=== PATIENT | male | born 1940 | race Caucasian/White ===

== ENCOUNTER → 2016-10-20 | Outpatient (CLI) | payer OTHER | LOC: BHCLAF 13:30 | PROVIDERS: ATTEND Internal Medicine Cardiovascular Disease | DX: I25.10 Atherosclerotic heart disease of native coronary artery without angina pectoris (principal); Z95.5 Presence of coronary angioplasty implant and graft; Z95.1 Presence of aortocoronary bypass graft; I10 Essential (primary) hypertension; E78.5 Hyperlipidemia, unspecified; G45.9 Transient cerebral ischemic attack, unspecified | CPT/HCPCS: 93005-PO ==

== ENCOUNTER → 2016-11-13 | Outpatient (CLI) | payer OTHER | LOC: BHFA 08:30 | PROVIDERS: ATTEND Internal Medicine Cardiovascular Disease | DX: I25.10 Atherosclerotic heart disease of native coronary artery without angina pectoris (principal) | CPT/HCPCS: 78452; 93017; A9500; J2785 ==

== ENCOUNTER 2016-11-26 07:37 | Day surgery (SDC) | payer OTHER ==
[2016-11-26] MEDS ORDERED: NS 1,000 ML IV ONE (07:42)
[2016-11-26] MEDS ORDERED: diphenhydrAMINE 25 MG CAP PO ONE ×2 (07:42→07:58)
[2016-11-26] MEDS ORDERED: FAMOTIDINE 20 MG TAB PO ONE (07:42)
[2016-11-26] MEDS ORDERED: ASPIRIN EC 325 MG TAB PO ONE ×2 (07:42→07:58)
[2016-11-26] MEDS ORDERED: DIAZEPAM 5 MG TAB PO ONE (07:42)
[2016-11-26] MEDS ORDERED: FAMOTIDINE 20 MG TAB ONE (07:58)
[2016-11-26] MEDS ORDERED: DIAZEPAM 5 MG TAB ONE (07:58)
--- NOTE | 2016-11-26 08:21 | CPEKG ---
Heart Rate: 48 RR Interval: 1250 P-R Interval: 160 QRSD Interval: 148 QT Interval: 476 QTC Interval: 426 P [place]: 65 QRS [place]: -82 T Wave [place]: 103 EKG Severity - ABNORMAL ECG - EKG Impression: SINUS BRADYCARDIA EKG Impression: ATRIAL PREMATURE COMPLEX EKG Impression: RBBB AND LAFB Electronically Signed By: Tony Price 26-Nov-2016 14:20:41
[2016-11-26 08:29] LABS: % IMMATURE GRANULYOCYTES 0.4 % (0.0-1.1); ABSOLUTE IMMATURE GRANULOCYTES 0.03 10^3/uL (0.00-0.10); ADD DIFF? NO; ADD MORPH? NO; ADD SCAN? NO; ATYPICAL LYMPHOCYTE FLAG 10 (0-99); FRAGMENT RBC FLAG 0 (0-99); HEMATOCRIT 48.5 % (40.0-51.0); HEMOGLOBIN 16.6 g/dL (13.7-17.5); LEFT SHIFT FLG 0 (0-99); LIPEMIA HEMOLYSIS FLAG 90 (0-99); MEAN CELL HEMOGLOBIN 32.1 pg (27.9-34.1); MEAN CELL HEMOGLOBIN CONCENTR. 34.2 g/dL (32.4-36.7); MEAN CELL VOLUME 93.8 fL (81.5-99.8); MEAN PLATELET VOLUME 10.4 fL (8.7-11.7); PLATELET CLUMPS FLAG 20 (0-99); PLATELET COUNT 170 10^3/uL (150-400); RED BLOOD CELL COUNT 5.17 10^6/uL (4.40-6.38); RED CELL DISTRIBUTION WIDTH 12.4 % (11.5-15.2)
[2016-11-26] MEDS ORDERED: fentaNYL 100 MCG/2 ML INJ ONE (08:42)
[2016-11-26] MEDS ORDERED: LIDOCAINE 1% 30 ML SDV ONE (08:42)
[2016-11-26] MEDS ORDERED: MIDAZOLAM 2 MG/2 ML VIAL ONE (08:42)
[2016-11-26] MEDS ORDERED: IOPAMIDOL (ISOVUE 370) 100 ML BTL IV ONE ×2 (08:43→09:36)
[2016-11-26 08:44] LABS: ANION GAP 11 mEq/L (8-16); CALCIUM 9.5 mg/dL (8.5-10.4); CARBON DIOXIDE 22 mEq/l (22-31); CHLORIDE 113 mEq/L (97-110); CHOLESTEROL 120 mg/dL (140-220); CHOLESTEROL/HDL RATIO 2.18 RATIO (1.00-4.97); CREATININE 0.9 mg/dL (0.7-1.3); GLOMERULAR FILTRATION RATE > 60; GLUCOSE 92 mg/dL (70-100); HIGH DENSITY LIPOPROTEIN 55 mg/dL (40-65); LDL/HDL RATIO 0.82 RATIO (1.00-3.64); LOW DENSITY LIPOPROTEIN 45 mg/dL (80-100); MAGNESIUM 2.1 mg/dL (1.6-2.3); NON-HIGH DENSITY LIPOPROTEIN 65 mg/dL (90-129); POTASSIUM 4.1 mEq/L (3.5-5.2); SODIUM 146 mEq/L (134-144); TRIGLYCERIDE 101 mg/dL (40-150); VERY LOW DENSITY LIPOPROTEINS 20 mg/dL (8-25)
[2016-11-26 08:54] LABS: PROTIME(PATIENT) 13.1 SEC (12.0-15.0)
--- NOTE | 2016-11-26 13:55 | CPIP ---
[f rep st] INVASIVE CARDIAC PROCEDURE DATE OF PROCEDURE: 11/26/2016 PROCEDURE PERFORMED: 1. Left heart catheterization. 2. Coronary angiography. 3. Left ventriculogram. INDICATION FOR PROCEDURE: 1. History of coronary artery disease with 3-vessel bypass. 2. Abnormal Lexiscan nuclear stress test. 3. Progressive shortness of breath. MATERIALS USED: 1. JL4. 2. JR4. 3. Avinash right. 4. Pigtail catheter. PROCEDURE DETAILS: After consent was obtained, the patient was taken to the cardiac shellfish processing laborer, place d on the table in the usual sterile fashion. 1% lidocaine was used for local anesthetic. A 6-Eritre[place] sheath was used for access to the right femoral artery and the procedure was performed in the standa rd procedure. Findings were as follows: 1. Left main has a stented segment into the proximal portion of left anterior descending. The stent is patent, free of luminal irregularities. There is no obvious circumflex artery noted with these s hots. 2. Left anterior descending is a medium sized vessel giving rise to 2 diagonals. There are luminal irregularities noted throughout, but no critical coronary artery appreciated. 3. The circumflex as stated above is 100% occluded without any [id number] flow appreciated. 4. Right coronary artery has occlusion in the midportion of the vessel. The portion of the vessel t hat was injected is rather small and diminutive. 5. Saphenous vein graft skip from OM1 to OM2 and vitality patent. Backfill after the anastomotic to uchdown on OM1 shows minimal luminal irregularities, upwards of 30%. 6. Saphenous vein graft to PDA, which was a component of the right coronary artery, is widely paten t and fills the vast majority of mid and distal portion of the right coronary artery circulation. 7. Left ventriculogram was performed which revealed an ejection fracture of approximately 45% with anterior wall hypokinesis. 8. There was a unique finding with a staple from the surgical intervention which showed excessive m ovement throughout the coronary silhouette. At the conclusion of the study had an interventional car diologist and the cardiothoracic surgeon assess the location of this very mobile staple. 9. Angio-Seal was used for closure. 10. No complications were appreciated. 11. I spoke with patient's about the findings from the stented artery, the bypassed artery, as well as the freely moving staple from the surgical intervention of the past. 12. We will see the patient in 1 week for followup. /[id number]/MODL
== END 2016-11-26 14:30 | disposition home or self-care (01) ==
LOC: FCATH 07:37
PROVIDERS: ATTEND Internal Medicine Cardiovascular Disease
PROC: B2111ZZ Fluoroscopy of Multiple Coronary Arteries using Low Osmolar Contrast (ICD-10-PCS; principal; 2016-11-26)
PROC: B2151ZZ Fluoroscopy of Left Heart using Low Osmolar Contrast (ICD-10-PCS; principal; 2016-11-26)
PROC: 4A023N7 Measurement of Cardiac Sampling and Pressure, Left Heart, Percutaneous Approach (ICD-10-PCS; principal; 2016-11-26)
PROC: B21F1ZZ Fluoroscopy of Other Bypass Graft using Low Osmolar Contrast (ICD-10-PCS; principal; 2016-11-26)
DX: I25.10 Atherosclerotic heart disease of native coronary artery without angina pectoris (principal); I25.82 Chronic total occlusion of coronary artery; I25.2 Old myocardial infarction; Z95.5 Presence of coronary angioplasty implant and graft; Z95.1 Presence of aortocoronary bypass graft; I10 Essential (primary) hypertension; E78.5 Hyperlipidemia, unspecified; Z86.73 Personal history of transient ischemic attack (TIA), and cerebral infarction without residual deficits
CPT/HCPCS: C1760; J1644; J2250; J3010; Q9967

== ENCOUNTER → 2017-03-30 | Outpatient (CLI) | payer OTHER | LOC: FIMAGING 14:58 | DX: M81.0 Age-related osteoporosis without current pathological fracture (principal); S32.9XXS Fracture of unspecified parts of lumbosacral spine and pelvis, sequela; I10 Essential (primary) hypertension; Z85.828 Personal history of other malignant neoplasm of skin ==

== ENCOUNTER → 2017-06-17 | Outpatient (CLI) | payer OTHER ==
[~2017-06-17] MED LIST: IOPAMIDOL (ISOVUE-300) 100 ML BTL ONE
== END ==
LOC: CIMAGING 14:18
PROVIDERS: ATTEND Internal Medicine
DX: N40.2 Nodular prostate without lower urinary tract symptoms (principal); K57.30 Diverticulosis of large intestine without perforation or abscess without bleeding; K40.90 Unilateral inguinal hernia, without obstruction or gangrene, not specified as recurrent
CPT/HCPCS: 74177; Q9967

== ENCOUNTER → 2017-07-12 | Outpatient (CLI) | payer OTHER | LOC: BHCLAF 14:45 | PROVIDERS: ATTEND Internal Medicine Cardiovascular Disease | DX: I25.10 Atherosclerotic heart disease of native coronary artery without angina pectoris (principal) | CPT/HCPCS: 93306-PO ==

== ENCOUNTER → 2017-12-21 | Outpatient (CLI) | payer OTHER | LOC: CIMAGING 16:45 | PROVIDERS: ATTEND Internal Medicine | DX: R91.8 Other nonspecific abnormal finding of lung field (principal); Z98.890 Other specified postprocedural states | CPT/HCPCS: 71046-PO ==

== ENCOUNTER 2017-12-23 09:53 | Emergency (ER) | payer OTHER ==
--- NOTE | 2017-12-23 10:29 | CPEKG ---
Heart Rate: 55 RR Interval: 1091 P-R Interval: 156 QRSD Interval: 154 QT Interval: 476 QTC Interval: 456 P [place]: 46 QRS [place]: -80 T Wave [place]: 73 EKG Severity - ABNORMAL ECG - EKG Impression: SINUS RHYTHM EKG Impression: RBBB AND LAFB Electronically Signed By: Yulisa Desai 23-Dec-2017 14:26:29
--- NOTE | 2017-12-23 10:35 | EDPHY ---
H & P Time Seen by Provider: 12/23/17 10:15 HPI/ROS: CHIEF COMPLAINT: Fatigue HISTORY OF PRESENT ILLNESS: 77-year-old male with CAD, s/p CABG, presents with fatigue. 3 days ago, he awoke feeling very fatigued. While doing his usual activities around the house, he needed to stop and sit down because of excessive fatigue. Associated with decreased appetite 3 days ago. Since then he has gradually felt better and his appetite has returned, but continues to feel fatigued. He saw his primary care physician 2 days ago. Chest x-ray revealed atelectasis versus infiltrate in the left lower lobe. He saw his sewing machine operator semiautomatic, Dr. Esparza today, who sent him to the emergency department for cardiac labs. Today he is feeling back to normal. Decreased exercise tolerance over the last 6 months. He becomes short of breath after 30 min of walking. No change management coordinator the past week. He has been otherwise asymptomatic; no recent angina, fever, cough, nausea, abdominal pain. REVIEW OF SYSTEMS: complete 10 point ROS negative except at noted in the HPI Past Medical/Surgical History: CAD CABG 1998 Social History: PCP: Dr. Gonzalez Director Craft Center: Dr. Esparza Smoking Status: Never smoked Physical Exam: General Appearance: Alert, pleasant Eyes: Pupils equal and round, no conjunctival pallor or injection ENT, Mouth: Mucous membranes moist Neck: Normal inspection Respiratory: Rales at the bases Cardiovascular: Regular rate and rhythm, no murmur Gastrointestinal: Abdomen is soft and nontender Neurological: A&O, nonfocal, normal gait Skin: Warm and dry, no rash Extremities: Nontender, no pedal edema Psychiatric: Mood and affect normal Constitutional: Initial Vital Signs Temperature (C) 36.4 C 12/23/17 10:03 Heart Rate 58 L 12/23/17 10:03 Respiratory Rate 16 12/23/17 10:03 Blood Pressure 169/82 H 12/23/17 10:03 O2 Sat (%) 93 12/23/17 10:03 O2 Delivery Mode Room Air O2 (L/minute) 93 Allergies/Adverse Reactions: No Known Allergies Allergy (Verified 12/23/17 09:59) Home Medications: Medication Instructions Recorded Atorvastatin Calcium [Lipitor 40 80 mg PO DAILY 12/31/12 mg (RX)] amLODIPine BESYLATE [Norvasc 2.5 2.5 mg PO DAILY 12/31/12 mg (*)] Acetaminophen 1,000 mg PO PRN 11/26/16 Aspirin 81 mg PO DAILY 11/26/16 Clopidogrel 75 mg PO DAILY 11/26/16 Nicorandil 20 mg PO BID 11/26/16 Nitrolingual [place] (*) 12/23/17 Perhexaline 12/23/17 Medical Decision Making - Diagnostics EKG Interpretation: EKG interpreted by me reveals normal sinus rhythm, rate 55, right bundle branch block, left anterior fascicular block. Similar to EKG dated 11/26/2016. Interpretation: Abnormal EKG. ED Course/Re-evaluation: Chest x-ray from 12/21/2017 reviewed. Increased interstitial markings in the left lower lung base. Given that the patient does not have respiratory symptoms or fever and oxygen saturation is normal, I do not suspect pneumonia. Labs/EKG unremarkable except slighly elevated BNP. No prior BNP for comparison. No clinical evidence for pulm edema/CHF. Pt ambulates throughout ED; no SOB and O2 saturation normal. Unclear etiology of fatigue. No evidence of cardiopulm etiology. Differential Diagnosis: Differential diagnosis includes does not limited to infectious etiology such as pneumonia, hyponatremia, acute coronary syndrome, pulmonary edema - Data Points Laboratory Results: Laboratory Results 12/23/17 10:45 12/23/17 10:45 12/23/17 12/23/17 10:45 10:45 WBC 6.28 10^3/uL 10^3/uL (3.80-9.50) RBC 5.07 10^6/uL 10^6/uL (4.40-6.38) Hgb 16.0 g/dL g/dL (13.7-17.5) Hct 47.4 % % (40.0-51.0) MCV 93.5 fL fL (81.5-99.8) MCH 31.6 pg pg (27.9-34.1) MCHC 33.8 g/dL g/dL (32.4-36.7) RDW 12.2 % % (11.5-15.2) Plt Count 168 10^3/uL 10^3/uL (150-400) MPV 10.3 fL fL (8.7-11.7) Neut % (Auto) 62.3 % % (39.3-74.2) Lymph % (Auto) 24.8 % % (15.0-45.0) [place] % (Auto) 11.0 % % (4.5-13.0) Eos % (Auto) 1.1 % % (0.6-7.6) Baso % (Auto) 0.5 % % (0.3-1.7) Nucleat RBC Rel Count 0.0 % % (0.0-0.2) Absolute Neuts (auto) 3.91 10^3/uL 10^3/uL (1.70-6.50) Absolute Lymphs (auto) 1.56 10^3/uL 10^3/uL (1.00-3.00) Absolute Monos (auto) 0.69 10^3/uL 10^3/uL (0.30-0.80) Absolute Eos (auto) 0.07 10^3/uL 10^3/uL (0.03-0.40) Absolute Basos (auto) 0.03 10^3/uL 10^3/uL (0.02-0.10) Absolute Nucleated RBC 0.00 10^3/uL 10^3/uL (0-0.01) Immature Gran % 0.3 % % (0.0-1.1) Immature Gran # 0.02 10^3/uL 10^3/uL (0.00-0.10) Sodium 145 mEq/L mEq/L (135-145) Potassium 4.2 mEq/L mEq/L (3.5-5.2) Chloride 107 mEq/L mEq/L (97-110) Carbon Dioxide 25 mEq/l mEq/l (22-31) Anion Gap 13 mEq/L mEq/L (8-16) BUN 22 mg/dL mg/dL (7-23) Creatinine 1.1 mg/dL mg/dL (0.7-1.3) Estimated GFR > 60 Glucose 89 mg/dL mg/dL (70-100) Calcium 9.8 mg/dL mg/dL (8.5-10.4) Troponin I 0.034 ng/mL ng/mL (0.000-0.034) NT-Pro-B Natriuret Pep 758 pg/mL H pg/mL (0-450) Departure - Departure Disposition: Home, Routine, Self-Care Clinical Impression: Fatigue Qualifiers: Fatigue type: other Qualified Code(s): R53.83 - Other fatigue Condition: Good Instructions: Fatigue (ED) Referrals: Chang Gonzalez MD [Primary Care Provider] - 2-3 days, if not improved
[2017-12-23 10:53] LABS: PLATELET COUNT 168 10^3/uL (150-400)
[2017-12-23 12:12] VITALS: BP 137/80
== END 2017-12-23 12:04 | disposition home or self-care (01) ==
LOC: CED 09:53
DX: R53.83 Other fatigue (principal); I25.810 Atherosclerosis of coronary artery bypass graft(s) without angina pectoris; Z79.82 Long term (current) use of aspirin
CPT/HCPCS: 80048-PO; 83880-PO; 84484-PO; 85025-PO

== ENCOUNTER → 2018-01-12 | Outpatient (CLI) | payer OTHER | LOC: BHFA 09:30 | PROVIDERS: ATTEND Internal Medicine Cardiovascular Disease | DX: I25.10 Atherosclerotic heart disease of native coronary artery without angina pectoris (principal) | CPT/HCPCS: 78452; 93017; A9500; J2785 ==

== ENCOUNTER → 2018-08-15 | Outpatient (CLI) | payer OTHER | PROVIDERS: ATTEND Otolaryngology | DX: R13.13 Dysphagia, pharyngeal phase (principal); R49.8 Other voice and resonance disorders | CPT/HCPCS: 74230; 92611; G8996; G8997; G8998 ==